=== PATIENT | male | born 1985 | race Two or more races ===

== ENCOUNTER 2018-04-21 16:16 | Emergency (ER) | payer OTHER ==
[2018-04-21] MEDS ORDERED: AZITHROMYCIN 250 MG TABLET PO ONE (17:04)
[2018-04-21] MEDS ORDERED: LIDOCAINE 1% INJ-PF (10 MG/ML) 30 ML SDV INJ ONE (17:04)
[2018-04-21] MEDS ORDERED: CEFTRIAXONE INJ 250 MG VIAL IM ONE (17:04)
[2018-04-21 17:38] VITALS: BP 133/71
[2018-04-21 17:48] LABS: APPEARANCE,URINE SLIGHTLY-CLOUDY; BILIRUBIN,URINE NEGATIVE (NEGATIVE); COLOR,URINE YELLOW; GLUCOSE, URINE NEGATIVE (NEGATIVE); KETONES,URINE NEGATIVE (NEGATIVE); LEUKOCYTE ESTERASE,URINE MODERATE (NEGATIVE); NITRITE,URINE NEGATIVE (NEGATIVE); PROTEIN,URINE NEGATIVE (NEGATIVE); URINE SPECIFIC GRAVITY 1.025; UROBILINOGEN,URINE NEGATIVE mg/dL (<2.0)
--- NOTE | 2018-04-21 17:58 | ER Document Report ---
ED GI/ - General Chief Complaint: STD Exposure Stated Complaint: STD CHECK Time Seen by Provider: 04/21/18 17:03 Mode of Arrival: Ambulatory Information source: Patient Notes: 32-year-old male presented ED for STD checks. He states he found out that his girlfriend has been cheating on him and he wanted to be tested for GC and chlamydia. He states that his doctor could not get him in for couple weeks and so he wanted to be tested. Patient is alert and oriented, respirations regular and unlabored, speaking in full sentences, baby patient able to walk with a even steady gait. TRAVEL OUTSIDE OF THE [place] IN LAST 30 DAYS: No - HPI Patient complains to provider of: Other - Return for STDs Onset: Other - Couple weeks Quality of pain: No pain Pain Level: Denies Sexual history: STD exposure - STD exposure states his girlfriend is been cheating on him Associated symptoms: None Exacerbated by: Denies Relieved by: Denies Similar symptoms previously: No Recently seen / treated by doctor: No - Related Data Allergies/Adverse Reactions: No Known Allergies Allergy (Unverified 04/21/18 16:19) Past Medical History - General Information source: Patient - Social History Smoking Status: Never Smoker Cigarette use (# per day): No Chew tobacco use (# tins/day): No Smoking Education Provided: No Frequency of alcohol use: Social Drug Abuse: None Occupation: [employer] Lives with: Alone Family History: Reviewed & Not Pertinent Patient has suicidal ideation: No Patient has homicidal ideation: No - Past Medical History Cardiac Medical History: Reports: None Pulmonary Medical History: Reports: None EENT Medical History: Reports: None Neurological Medical History: Reports: None Endocrine Medical History: Reports: None Renal/ Medical History: Reports: None Malignancy Medical History: Reports None GI Medical History: Reports: None Musculoskeltal Medical History: Reports None Skin Medical History: Reports Other - Lipoma Psychiatric Medical History: Reports: None Traumatic Medical History: Reports: None Infectious Medical History: Reports: None Past Surgical History: Reports: Other - Lipoma removed - Immunizations Immunizations up to date: Yes Hx Diphtheria, Pertussis, Tetanus Vaccination: Yes Review of Systems - Review of Systems Notes: Patient states his girlfriend been cheating on him and he is concerned that he might have STD. Patient had no signs or symptoms at this time Constitutional: No symptoms reported EENT: No symptoms reported Cardiovascular: No symptoms reported Respiratory: No symptoms reported Gastrointestinal: No symptoms reported Genitourinary: No symptoms reported Male Genitourinary: No symptoms reported Musculoskeletal: No symptoms reported Skin: No symptoms reported Hematologic/Lymphatic: No symptoms reported Neurological/Psychological: No symptoms reported Physical Exam - Vital signs Vitals: Temp Pulse Resp BP Pulse Ox 98.7 F 70 16 138/74 H 98 04/21/18 16:35 04/21/18 16:35 04/21/18 16:35 04/21/18 16:35 04/21/18 16:35 Interpretation: Normal - General General appearance: Appears well, Alert - HEENT Head: Normocephalic, Atraumatic Eyes: Normal Pupils: PERRL - Respiratory Respiratory status: No respiratory distress Chest status: Nontender Breath sounds: Normal Chest palpation: Normal - Cardiovascular Rhythm: Regular Heart sounds: Normal auscultation Murmur: No - Abdominal Inspection: Normal Distension: No distension Bowel sounds: Normal Tenderness: Nontender Organomegaly: No organomegaly - Back Back: Normal, Nontender - Extremities General upper extremity: Normal inspection, Nontender, Normal color, Normal ROM , Normal temperature General lower extremity: Normal inspection, Nontender, Normal color, Normal ROM , Normal temperature, Normal weight bearing. No: Theresa's sign - Neurological Neuro grossly intact: Yes Cognition: Normal Orientation: AAOx4 Viktoriya Coma Scale Eye Opening: Spontaneous Viktoriya Coma Scale Verbal: Oriented [place] Coma Scale Motor: Obeys Commands Viktoriya Coma Scale Total: 15 Speech: Normal Motor strength normal: LUE, RUE, LLE, RLE Sensory: Normal - Psychological Associated symptoms: Normal affect, Normal mood - Skin Skin Temperature: Warm Skin Moisture: Dry Skin Color: Normal Course - Re-evaluation Re-evalutation: 04/21/18 22:10 Patient states he came to the ED to be checked for STDs because he found out that his girlfriend was cheating on him. He states he is not having any signs or symptoms of any type of STD. He states he was concerned and he was treated with Rocephin and medicine because he did not wait for the test results. Patient later in the day called for the test results and they were negative. Patient was informed that we did not test for the HIV hepatitis herpes and other STDs that he would need to get tested for with the [employer] if he is concerned for any of these. - Vital Signs Vital signs: Temp Pulse Resp BP Pulse Ox 98.7 F 62 16 133/71 H 99 04/21/18 16:35 04/21/18 17:32 04/21/18 17:32 04/21/18 17:32 04/21/18 17:32 - Laboratory Laboratory results interpreted by me: 04/21/18 16:45 Ur Leukocyte Esterase MODERATE H Urine Ascorbic Acid 40 H Discharge - Discharge Clinical Impression: Concern about STD in male without diagnosis Condition: Stable Disposition: HOME, SELF-CARE Additional Instructions: You were seen today for concern for STDs. CEPHALOSPORINS: An antibiotic of the cephalosporin class has been prescribed. This type of antibiotic covers a wide variety of infections, including those of the skin, lungs, middle ear, and urinary tract. This antibiotic is somewhat similar to the penicillin family. In rare cases , a person who is allergic to penicillin will also be allergic to this medication. If you have had a severe allergic reaction to penicillin, and have not taken this antibiotic since that time, notify your doctor. Antibiotics which cover many germs ("broad spectrum" antibiotics) are more likely to cause diarrhea or "yeast" infections. Women prone to vaginal yeast problems may suffer an attack after taking this antibiotic. In infants, oral thrush (white spots "stuck" on the cheek) or yeast diaper rash may result. See your doctor if these problems occur. Call the doctor at once if you develop hives, itching, shortness of breath , or lightheadedness. AZITHROMYCIN: Azithromycin (Zithromax) is a broad spectrum antibiotic in the same class as erythromycin. It can treat a variety of bacterial infections, but is most frequently used for respiratory infections. Azithromycin is extremely long-lasting. It accumulates in body tissues and continues to kill bacteria for many days. In order to improve absorption, Azithromycin should be taken at least one hour before or two hours after a meal. It does not have the same strong tendency to upset the stomach as erythromycin and is usually very well tolerated. Patients who have had a rash or other true allergic reactions to erythromycin should not take this medication. Call if you develop gastrointestinal distress, severe diarrhea, rash, hives, itching, or shortness of breath. FOLLOW-UP CARE: If you have been referred to a physician for follow-up care, call the physician s office for an appointment as you were instructed or within the next two days. If you experience worsening or a significant change in your symptoms, notify the physician immediately or return to the Emergency Department at any time for re-evaluation. You can call around 7 for your results at [phone] or tomorrow you can call [phone] Forms: Elevated Blood Pressure
[2018-04-21 19:10] LABS: CHLAM PCR NOT DETECTED (NOT DETECT); GON PCR NOT DETECTED (NOT DETECT)
== END 2018-04-21 18:10 | disposition home or self-care (01) ==
LOC: ER 16:16
DX: A64 Unspecified sexually transmitted disease (principal)
CPT/HCPCS: 99283; 96372; 81001; 87491; 87591; J3490; J0696